=== PATIENT | female | born 1950 | race Caucasian/White ===

== ENCOUNTER 2016-07-26 22:07 | Inpatient (IN) | payer MEDICARE, OTHER ==
[2016-07-26 21:36] LABS: BASO % 0.1 % (0-2); EOS % 0.3 % (0-7); EOSINOPHIL ABSOLUTE COUNT 0.1 tho/cmm (0.0-0.7); HCT-HEMATOCRIT 46.2 % (34.0-49.0); HGB-HEMOGLOBIN 15.2 gm/dl (12.0-15.5); IMMATURE GRANULOCYTES PERCENT 0.4 % (0-0.3); LYMPH % 4.7 % (20-45); LYMPH ABSOLUTE COUNT 1.3 tho/cmm (0.8-4.5); MCHC MEAN CORPUSCULAR HGB CONC 32.9 % (32.0-36.0); MCV (MEAN CELL VOLUME) 91.1 fl (82.0-96.0); MEAN PLATELET VOLUME 10.4 cmc (9.4-12.4); MONO % 2.5 % (0-12); MONOCYTE ABSOLUTE COUNT 0.7 tho/cmm (0.0-1.2); NEUTROPHIL ABSOLUTE COUNT 25.1 tho/cmm (1.6-8.0); NEUTROPHIL-AUTOMATED 25.1 tho/cmm (1.6-8.0); PLATELET COUNT 319 tho/cmm (150-450); RED BLOOD COUNT 5.07 mil/cmm (4.00-5.20); RED CELL DISTRIBUTION WIDTH 13.7 % (12.4-16.4); WHITE BLOOD COUNT 27.3 tho/cmm (4.0-10.0)
[2016-07-26 21:41] LABS: INR 0.9 INR (0.9-1.1); PROTHROMBIN TIME 10.6 SECONDS (9.0-13.6)
[2016-07-26 21:54] LABS: ALBUMIN 3.5 g/dl (3.5-5.0); ALKALINE PHOSPHATASE 75 U/L (33-138); ALT/SGPT 22 U/L (12-78); ANION GAP 12 mmol/L (0-20); AST/SGOT 16 U/L (10-40); BILIRUBIN,TOTAL 0.6 mg/dl (0-1.5); BLOOD UREA NITROGEN 34 mg/dl (6-24); CALCIUM 8.6 mg/dl (8.5-10.5); CARBON DIOXIDE-VENOUS 30 mmol/L (22-32); CHLORIDE 98 mmol/l (96-110); CREATININE 0.85 mg/dl (0.50-1.10); GLUCOSE 278 mg/dL (70-110); LIPASE 119 U/L (73-393); MAGNESIUM 1.8 mg/dl (1.3-2.6); POTASSIUM 3.4 mmol/L (3.7-5.1); SODIUM 137 mmol/L (135-145); eGFR VALUE FOR BLACK 82 mL/Min
[2016-07-26 22:00] LABS: WBC MORPHOLOGY VACUOLES
[~2016-07-26 22:07] MED LIST: ALBUTEROL17 GM INH; AMBIEN CR12.5 MG PO; AMBIEN10 MG PO; AVANDAMET 2 MG/1 TAB PO; BRIMONIDINE TART5 M2 OP; CIPRO250 MG PO; COMPAZINE PO; CPAP; CYMBALTA30 MG PO; CYMBALTA60 M1 PO; CYMBALTA60 MG PO; DORZOLAMIDE-TIM10 M1 EACH EYE; EYLEA2 MG/0.01 OP; FEMARA2.5 M1 PO; FEMARA2.5 MG PO; FISH OIL 1,2001 CAP PO; GABAPENTIN400 M1 PO; GABAPENTIN400 M3 PO; GLUCOPHAGE PO; GLUCOPHAGE500 M3 PO; GLUCOPHAGE500 MG PO; GLUCOPHAGE850 M1 PO; HYDROCHLOROTHIA25 M1 PO; HYDROCHLOROTHIA25 MG PO; IBUPROFEN200 M3 PO; IRON45 MG PO; JANUMET 50-1,1 UDTAB PO; LEVAQUIN250 M3 PO; LYRICA75 MG PO; METFORMIN HCL500 M2 PO; METFORMIN HCL500 MG; METFORMIN HCL500 PO; MOTRIN IB200 M1 PO; MULTIVITAMIN1 CAP; MULTIVITAMIN1 TAB PO; NORCO 7.5/3251 TAB PO; NUCYNTA50 M1 PO; ONDANSETRON HCL8 MG PO; OXYCODONE HCL E10 MG PO; PERCOCET 5-3251 EACH PO; SLEEP AID; SYMBICORT 16010.2 GM IH; THEOPHYLLINE300 MG PO; TRAMADOL HCL50 MG PO; TYLENOL EXTRA500 M1 PO; TYLENOL325 M2 PO; VOLTAREN100 G1 TOP; WELLBUTRIN XL300 MG; XALATAN2.5 M1 EACH EYE; XALATAN2.5 ML OP; ZOLPIDEM TARTRAT5 M2 PO; ZOMIG2.5 MG PO
[2016-07-26 22:57] LABS: URINE BILIRUBIN NEGATIVE (NEG); URINE BLOOD NEGATIVE (NEG); URINE GLUCOSE (UA) MODERATE (NEG); URINE KETONE NEGATIVE (NEG); URINE LEUKOCYTE ESTERASE NEGATIVE (NEG); URINE NITRITE NEGATIVE (NEG); URINE PROTEIN NEGATIVE (NEG)
[2016-07-26 22:59] LABS: URINE APPEARANCE CLEAR; URINE COLOR YELLOW
[2016-07-26] MEDS ORDERED: MOBIC7.5 M2 PO (23:03)
[2016-07-27 03:59] LABS: C-REACTIVE PROTEIN 1.9 mg/dl (0-0.9)
[2016-07-27 04:01] LABS: TSH-THYROID STIMULATING HORM. 2.63 uIU/ml (0.40-3.80)
[2016-07-27 06:54] LABS: EOS % 2.1 % (0-7); EOSINOPHIL ABSOLUTE COUNT 0.2 tho/cmm (0.0-0.7); HCT-HEMATOCRIT 33.7 % (34.0-49.0); IMMATURE GRANULOCYTES ABSOLUTE 0.02 tho/cmm (0-0.03); IMMATURE GRANULOCYTES PERCENT 0.2 % (0-0.3); LYMPH % 8.4 % (20-45); MCH (MEAN CORPUSCULAR HGB) 29.3 pg (28.0-32.0); MCHC MEAN CORPUSCULAR HGB CONC 32.6 % (32.0-36.0); MCV (MEAN CELL VOLUME) 89.9 fl (82.0-96.0); MEAN PLATELET VOLUME 9.9 cmc (9.4-12.4); MONO % 3.2 % (0-12); MONOCYTE ABSOLUTE COUNT 0.4 tho/cmm (0.0-1.2); NEUTROPHIL ABSOLUTE COUNT 10.1 tho/cmm (1.6-8.0); NEUTROPHIL-AUTOMATED 10.1 tho/cmm (1.6-8.0); NEUTROPHILS % 86.1 % (40-80); PLATELET COUNT 206 tho/cmm (150-450); RED BLOOD COUNT 3.75 mil/cmm (4.00-5.20); RED CELL DISTRIBUTION WIDTH 13.8 % (12.4-16.4)
[2016-07-27 07:00] LABS: WHITE BLOOD COUNT 11.7 tho/cmm (4.0-10.0)
[2016-07-27 07:09] LABS: ANION GAP 11 mmol/L (0-20); BLOOD UREA NITROGEN 17 mg/dl (6-24); CALCIUM 7.4 mg/dl (8.5-10.5); CARBON DIOXIDE-VENOUS 27 mmol/L (22-32); CHLORIDE 108 mmol/l (96-110); GLUCOSE 160 mg/dL (70-110); SODIUM 142 mmol/L (135-145); eGFR VALUE FOR BLACK >90 mL/Min
[2016-07-28 05:24] LABS: BASO % 0.1 % (0-2); EOS % 2.8 % (0-7); EOSINOPHIL ABSOLUTE COUNT 0.2 tho/cmm (0.0-0.7); HGB-HEMOGLOBIN 10.6 gm/dl (12.0-15.5); IMMATURE GRANULOCYTES ABSOLUTE 0.01 tho/cmm (0-0.03); IMMATURE GRANULOCYTES PERCENT 0.1 % (0-0.3); LYMPH % 20.4 % (20-45); LYMPH ABSOLUTE COUNT 1.7 tho/cmm (0.8-4.5); MCH (MEAN CORPUSCULAR HGB) 29.3 pg (28.0-32.0); MCHC MEAN CORPUSCULAR HGB CONC 32.1 % (32.0-36.0); MCV (MEAN CELL VOLUME) 91.2 fl (82.0-96.0); MEAN PLATELET VOLUME 9.6 cmc (9.4-12.4); MONO % 7.1 % (0-12); MONOCYTE ABSOLUTE COUNT 0.6 tho/cmm (0.0-1.2); NEUTROPHIL ABSOLUTE COUNT 5.8 tho/cmm (1.6-8.0); NEUTROPHIL-AUTOMATED 5.8 tho/cmm (1.6-8.0); NEUTROPHILS % 69.5 % (40-80); PLATELET COUNT 181 tho/cmm (150-450); RED BLOOD COUNT 3.62 mil/cmm (4.00-5.20); RED CELL DISTRIBUTION WIDTH 13.7 % (12.4-16.4); WHITE BLOOD COUNT 8.3 tho/cmm (4.0-10.0)
[2016-07-28 05:37] LABS: ANION GAP 9 mmol/L (0-20); BLOOD UREA NITROGEN 16 mg/dl (6-24); CALCIUM 8.2 mg/dl (8.5-10.5); CARBON DIOXIDE-VENOUS 30 mmol/L (22-32); CHLORIDE 108 mmol/l (96-110); CREATININE 0.63 mg/dl (0.50-1.10); GLUCOSE 148 mg/dL (70-110); SODIUM 143 mmol/L (135-145); eGFR VALUE FOR BLACK >90 mL/Min
== END 2016-07-28 15:37 | DRG 871 ==
LOC: EDMED 22:07 → EMR2 23:57 → CCU 07-27 02:30
PROVIDERS: Family Medicine; Hospitalist; Internal Medicine; ADMIT Hospitalist
PROC: 02HV33Z Insertion of Infusion Device into Superior Vena Cava, Percutaneous Approach (ICD-10-PCS; principal; 2016-07-27)
DX: A41.9 Sepsis, unspecified organism (principal); R65.21 Severe sepsis with septic shock; I95.9 Hypotension, unspecified; I27.2 Other secondary pulmonary hypertension; E11.9 Type 2 diabetes mellitus without complications; J45.909 Unspecified asthma, uncomplicated; R55 Syncope and collapse; I45.10 Unspecified right bundle-branch block; Z87.891 Personal history of nicotine dependence; Z85.43 Personal history of malignant neoplasm of ovary; Z85.3 Personal history of malignant neoplasm of breast; Z23 Encounter for immunization
CPT/HCPCS: A9500; C1751; G0009; J1650; J1815; J2405; J2543; J3370; J3480; J7030; Q9967